=== PATIENT | male | born 1950 | race Caucasian/White ===

== ENCOUNTER → 2019-03-11 | Outpatient (CLI) | payer OTHER ==
[~2019-03-11] MED LIST: CALC-959 PO; CARB200T6 PO; DENO60DI SQ; DIPH25 PO; FERR-89 PO; FISH1CAP63 PO; FOLI1 PO; LEVO500C3 PO; LEVO75 PO; MIRT30 PO; ROSU20TA23 PO; VALP250 PO; VITAMIN B12 PO
== END | disposition home or self-care (01) ==
LOC: EDBD 09:30 → RADPV 09:30
PROVIDERS: ATTEND Internal Medicine
DX: R13.10 Dysphagia, unspecified (principal)
CPT/HCPCS: 74230; 92611